=== PATIENT | female | born 1990 | race Caucasian/White ===

== ENCOUNTER 2019-08-15 14:03 | Emergency (ER) | payer OTHER, SELFPAY ==
[2019-08-15 14:18] VITALS: BP 137/73; PULSE 88; RESP 20; TEMP 36.7; O2SAT 100
--- NOTE | 2019-08-15 14:22 | ED.FEMALEGU ---
HPI - Female Genitourinary General Chief complaint: Urogenital-Female Stated complaint: Possible UTI Time Seen by Provider: 08/15/19 14:22 Source: patient and family History of Present Illness HPI Narrative: patient presents with burning with urination. no gross hematuria no abdominal pain no pelvic pain no concern for std. no vaginal discharge. no flank pain. Patient states her last normal period was 06/29/2019. patient is scheduled to have an ulatrasound later today to establish due date. patient denies any related problems. no abdominal pain no vaginal discharge. patient states she has not felt any movement due to very early in no vaginal bleeding. MD elicited complaint: dysuria and UTI Related Data Home Medications Medication Instructions Recorded Confirmed -wfwy fum-folic ac-om3 1 pkg PO DAILY 08/15/19 08/15/19 [Daily ] Allergies Allergy/AdvReac Type Severity Reaction Status Date / Time No Known Allergies Allergy Verified 08/15/19 14:26 Review of Systems Review of Systems: Narrative: CONSTITUTIONAL: Denies fever, chills, or sweats. EYES: Denies visual changes, redness, or discharge. ENT: Denies rhinorrhea, congestion, sore throat, or otalgia. CARDIOVASCULAR: Denies chest pain, palpitations, or edema. RESPIRATORY: Denies cough or dyspnea. GASTROINTESTINAL: Denies abdominal pain, nausea, vomiting, or diarrhea. GENITOURINARY: Denies hematuria. reports dysuria SKIN: Denies rash or itching. MUSCULOSKELETAL: Denies back pain, joint pain, or myalgia. NEUROLOGIC: Denies headache, numbness, or weakness. PSYCHIATRIC: Denies anxiety or depression. All systems reviewed & are unremarkable except as noted in HPI and below [facility] Family History Family History Father Family history of alcoholism Family history of arthritis Mother Family history of liver disease Family history of arthritis Family history of scoliosis Family history of lupus erythematosus Social History Social History Smoking status: Current every day smoker Alcohol intake: never Comments At time of signature, agree with nursing past medical, surgical, social and family history. There is no relevant family history pertinent to the presenting complaint Exam Narrative: Exam Narrative: GENERAL: Well-appearing, well-nourished, and in no acute distress. HEAD: Normocephalic, atraumatic. EYES: PERRLA and EOMI. ENT: Nares clear, no rhinorrhea or epistaxis. Mucous membranes moist. NECK: Supple. CHEST: Clear to auscultation. No respiratory distress. HEART: Regular rate and rhythm. No murmur heard. Normal peripheral pulses. ABDOMEN: Soft, nontender, nondistended, normal active bowel sounds. EXTREMITIES: Normal range of motion. No edema. SKIN: Warm, dry, no rash. NEURO: No focal deficits. Alert and oriented x3. Jose D Coma Scale Eye Opening: Spontaneous 4 [place] Coma Scale Motor: Obeys Commands 6 Jose D Coma Scale Verbal: Oriented 5 Jose D Coma Scale Total 15 Course Vital Signs Vital signs: Vital Signs Temperature 36.7 C 08/15/19 14:18 Pulse Rate 88 08/15/19 14:18 Respiratory Rate 20 08/15/19 14:18 Blood Pressure 137/73 08/15/19 14:18 Pulse Oximetry 100 08/15/19 14:18 Temperature 36.7 C 08/15/19 14:18 Pulse Rate 88 08/15/19 14:18 Respiratory Rate 20 08/15/19 14:18 Blood Pressure 137/73 08/15/19 14:18 Pulse Oximetry 100 08/15/19 14:18 Please CLARISA schedule a followup visit with your personal physician for further evaluation and treatment. Including recheck and discussion of your blood pressure. If your symptoms persist, change or worsen significantly before you can contact your personal physician then please, without delay, go to the emergency department for further evaluation MDM - Female Genitourinary Lab Data Labs: Urine Glucose
== END 2019-08-15 14:44 | disposition home or self-care (01) ==
PROVIDERS: Emergency Provider Nurse Practitioner Family
DX: O23.11 Infections of bladder in pregnancy, first trimester (principal); O99.331 Smoking (tobacco) complicating pregnancy, first trimester; Z3A.00 Weeks of gestation of pregnancy not specified
CPT/HCPCS: 81003; 87086; 99213; G0463

== ENCOUNTER 2023-03-17 23:42 | Emergency (ER) | payer OTHER, SELFPAY ==
[2023-03-17 23:48] VITALS: BP 116/74; PULSE 112; RESP 18; TEMP 37; O2SAT 97
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
[2023-03-18 00:23] VITALS: BP 112/70; PULSE 98; RESP 18; O2SAT 100
== END 2023-03-18 00:29 | disposition home or self-care (01) ==
PROVIDERS: Emergency Provider Emergency Medicine; PCP Family Medicine
DX: Z04.1 Encounter for examination and observation following transport accident (principal); F17.200 Nicotine dependence, unspecified, uncomplicated; Z79.899 Other long term (current) drug therapy; V89.2XXA Person injured in unspecified motor-vehicle accident, traffic, initial encounter
CPT/HCPCS: 99283